=== PATIENT | female | born 1980 | race Caucasian/White ===

== ENCOUNTER → 2020-12-22 11:02 | Outpatient (CLI) | payer OTHER, MEDICAID, SELFPAY ==
--- NOTE | 2020-12-22 11:04 | DI.US.S_ITS ---
PROCEDURE: US OB <= 14 WEEKS FETUS INDICATIONS: DATING OUTSIDE/PRIOR DATING DATA: Last menstrual period (LMP): October 25, 2020. LMP-based estimated date of delivery (LAST): August 01, 2021. First dating scan (date and location): December 22, 2020. Estimated date of delivery (LAST) from first dating scan: July 30, 2021. TECHNIQUE: Real-time scanning was performed of the fetus and maternal pelvic organs, with image documentation. Endovaginal scanning was also performed to better visualize the fetus and maternal ovaries. COMPARISON: None. FINDINGS: Embryo: The mean crown-rump length measures 1.9 cm, compatible with 8 week, 4 day gestation. Heart rate: 163 beats per minute. Prominent bilateral adnexal veins are noted. Measurement variability in dating: +/- 4 weeks by LMP, +/- 7 days by mean sac diameter (use before 6 weeks gestation if crown-rump length not able to be measured), +/- 5 days by crown-rump length (up to 8 weeks 6 days gestation), +/- 7 days by crown-rump length (up to 13 weeks 6 days gestation). Maternal organs: Ovaries demonstrate no significant abnormality . IMPRESSION: Live single intrauterine gestation as detailed above. Dictated by: Barney Alvares M.D. on 12/22/2020 at 12:30 Approved by: Barney Alvares M.D. on 12/22/2020 at 12:35
[2020-12-22 12:14] LABS: Add Manual Diff / Slide Review NO; Basophils Absolute Auto 0 /uL (0-100); Basophils Percent Auto 0.6 % (0-2); Eosinophils Absolute Auto 100 /uL (0-450); Eosinophils Percent Auto 1.4 % (2-4); Hematocrit 36.6 % (36-46); Hemoglobin 12.6 g/dL (12.0-16.0); Lymphocytes Absolute Auto 1500 /uL (1100-4500); Lymphocytes Percent Auto 24.7 % (25-40); Mean Corpuscular HGB Conc 34.5 % (30-36); Mean Corpuscular Hemoglobin 31.1 PG (26-34); Mean Corpuscular Volume 90.3 fL (80-100); Monocytes Absolute Auto 500 /uL (0-900); Monocytes Percent Auto 7.5 % (3-14); Neutrophils Absolute Auto 3900 /uL (1500-7000); Neutrophils Percent Auto 65.8 % (50-75); Platelet Count 250 X10^3/uL (150-400); Red Blood Cell Count 4.06 X10^6/uL (4.0-5.2); Red Cell Distribution Width 13.2 % (11.6-14.8)
[2020-12-22 13:39] LABS: Appearance Urine UA CLEAR; Bilirubin Urine UA NEGATIVE (NEGATIVE); Color Urine UA YELLOW; Glucose Urine UA NEGATIVE (Negative); Ketones Urine UA NEGATIVE (NEGATIVE); Leukocyte Esterase Urine UA NEGATIVE (NEGATIVE); Nitrite Urine UA NEGATIVE (Negative); Occult Blood Urine UA NEGATIVE (Negative); Protein Urine UA NEGATIVE (Negative); Specific Gravity Urine UA <=1.005 (1.000-1.035); Urobilinogen Urine UA 0.2 E.U./dL (0.2)
[2020-12-22 15:23] LABS: Hepatitis B Surface Antigen NEGATIVE s/c (NEGATIVE)
[2020-12-22 15:41] LABS: HIV 1 & 2 Ab/Ag 4th Gen Combo NEGATIVE (NEGATIVE); Hep C Virus Ab w/Reflex Quant NEGATIVE s/c (NEGATIVE)
[2020-12-23 05:41] LABS: RPR Screen Non Reactive (Non Reactive)
[2020-12-23 06:05] LABS: Varicella IgG Antibody 824 index (Immune >165)
[2021-01-03 13:42] LABS: Rubella Antibody IgG 53.9 IU/mL (>15)
== END ==
PROVIDERS: Referring Provider Obstetrics & Gynecology; Visit Provider Obstetrics & Gynecology
DX: Z34.81 Encounter for supervision of other normal pregnancy, first trimester (principal); Z36.87 Encounter for antenatal screening for uncertain dates; Z3A.08 8 weeks gestation of pregnancy
CPT/HCPCS: 36415; 76801; 76817; 80055; 81003; 86787; 86803; 86850; 86900; 86901; 87086; 87389

== ENCOUNTER → 2021-03-10 11:48 | Outpatient (CLI) | payer OTHER, MEDICAID, SELFPAY ==
[2021-03-10 14:15] LABS: GTT (PREG) 1 Hour PP 50gm Dose 138 mg/dL (76-139)
[2021-03-12 22:39] LABS: AFP, Serum 74.5 ng/mL (.); Calc Gestational Age Ultrasound (.); Estriol, Free 2.56 ng/mL (.); Inhibin A, Dimeric 85.54 pg/mL (.); Inhibin A, MoM 0.63 (.); Maternal Ethnicity Caucasian (.); Maternal Weight 199 lbs (.); Number of Fetuses No (.); OSBR Risk 1 IN 965 (.); Results Report (.); Test Results *Screen Negative* (.); hCG, Serum 13920 mIU/mL (.)
== END ==
PROVIDERS: Obstetrics & Gynecology; Referring Provider Obstetrics & Gynecology; Visit Provider Obstetrics & Gynecology
DX: Z3A.17 17 weeks gestation of pregnancy (principal); O09.299 Supervision of pregnancy with other poor reproductive or obstetric history, unspecified trimester; Z86.32 Personal history of gestational diabetes
CPT/HCPCS: 36415; 82105; 82677; 82950; 84702; 86336

== ENCOUNTER → 2021-03-16 14:58 | Outpatient (CLI) | payer OTHER, MEDICAID, SELFPAY ==
--- NOTE | 2021-03-16 14:58 | DI.US.S_ITS ---
PROCEDURE: US OB >= 14 WEEKS FETUS INDICATIONS: ANATOMY OUTSIDE/PRIOR DATING DATA: Last menstrual period (LMP): 10/25/2020 LMP-based estimated date of delivery (LAST): 08/01/2021. First dating scan (date and location): 12/22/2020. Estimated date of delivery (LAST) from first dating scan: 07/30/2021. The calculations are made using the ultrasound LAST of 07/30/2021. TECHNIQUE: Real-time scanning was performed of the fetus, with image documentation and biometric measurements. COMPARISON: None. FINDINGS: General: A single living intrauterine gestation is present. Presentation: Variable. Placenta: Placental position is anterior , without previa. Amniotic fluid index: 11.4 cm, normal range is 5-24 cm. heart rate: 143 beats per minute. Maternal cervical canal: 5.1 cm long. Normal lower limit is 2.5 cm. biometrics: Biparietal diameter: 21 weeks 3 days Head circumference: 21 weeks Abdominal circumference: 22 weeks 1 day Femur length: 21 weeks 0 days Clinically estimated gestational age: 20 weeks 4 days Composite gestational age from present scan: 21 weeks 3 days Estimated weight and percentile: 432 g; 91st percentile. Anatomic survey: Neuro: Ventricles are non-dilated at less than 10 mm. Cisterna magna is normal at 3-11 mm. Cerebellum is normal in size and morphology. Nuchal skin fold: Normal at less than 6 mm between 14-21 weeks gestational age. Face: Nose and lips, facial profile are normal. Spine: No evidence for spina bifida. Heart: 4-chambered heart is present, with normal ventricular outflow tracts. Diaphragm: Diaphragm is intact. Stomach: Left-sided stomach is present. Kidneys: No hydronephrosis. Normal is less than 5 mm in 2nd trimester, less than 7 mm in 3rd trimester. Cord: 3-vessel cord has orthotopic insertion. Bladder: Normal in size. Extremities: All 4 extremities identified. IMPRESSION: 1. Single living IUP redemonstrated and interval growth is upper limits of normal. 2. Normal anatomic survey. We strive to produce accurate, complete, and clear reports of imaging services. To assist us in improving patient care, this report was composed using standard report templates and voice recognition software. Therefore, it may contain abnormal punctuation, insertions and/or omissions. Occasional wrong-word or sound-alike substitutions may occur. Though we review the report and make efforts to correct it, we do recommend that the report be read carefully in proper context to recognize any text inaccuracies. Dictated by: Henry HARRISON Interpreted: Ramírez Webster MD on 03/20/2021 at 14:17 Approved by: Ramírez Webster M.D. on 03/20/2021 at 16:45
== END ==
PROVIDERS: Referring Provider Obstetrics & Gynecology; Visit Provider Obstetrics & Gynecology
DX: Z34.82 Encounter for supervision of other normal pregnancy, second trimester (principal); Z3A.21 21 weeks gestation of pregnancy
CPT/HCPCS: 76811

== ENCOUNTER → 2021-03-30 07:44 | Outpatient (CLI) | payer OTHER, MEDICAID, SELFPAY ==
[2021-03-30 09:09] LABS: Glucose Fasting Gestational 83 mg/dL (76-95)
[2021-03-30 09:29] LABS: Glucose 1 Hour Gest 171 mg/dL (76-180)
[2021-03-30 10:50] LABS: Glucose 2 Hour Gest 114 mg/dL (76-155)
[2021-03-30 11:13] LABS: Glucose Tol Interp,Gestational INTERPRETATION
[2021-03-30 12:32] LABS: Glucose 3 Hour Gest 82 mg/dL (76-140)
== END ==
PROVIDERS: Referring Provider Obstetrics & Gynecology; Visit Provider Obstetrics & Gynecology
DX: O09.299 Supervision of pregnancy with other poor reproductive or obstetric history, unspecified trimester (principal); Z3A.12 12 weeks gestation of pregnancy; Z86.32 Personal history of gestational diabetes
CPT/HCPCS: 36415; 82951; 82952

== ENCOUNTER → 2021-05-02 10:11 | Outpatient (CLI) | payer OTHER, MEDICAID, SELFPAY | PROVIDERS: Referring Provider Obstetrics & Gynecology; Visit Provider Obstetrics & Gynecology | DX: Z3A.26 26 weeks gestation of pregnancy (principal); O26.899 Other specified pregnancy related conditions, unspecified trimester; Z67.91 Unspecified blood type, Rh negative; O09.299 Supervision of pregnancy with other poor reproductive or obstetric history, unspecified trimester; Z86.32 Personal history of gestational diabetes | CPT/HCPCS: 36415; 86850 ==

== ENCOUNTER → 2021-05-25 14:00 | Outpatient (CLI) | payer OTHER, MEDICAID, SELFPAY ==
[2021-05-25 17:55] LABS: GTT (PREG) 1 Hour PP 50gm Dose 129 mg/dL (76-139)
== END ==
PROVIDERS: Referring Provider Obstetrics & Gynecology; Visit Provider Obstetrics & Gynecology
DX: O26.899 Other specified pregnancy related conditions, unspecified trimester (principal); Z3A.26 26 weeks gestation of pregnancy; Z67.91 Unspecified blood type, Rh negative; O09.299 Supervision of pregnancy with other poor reproductive or obstetric history, unspecified trimester; Z86.32 Personal history of gestational diabetes
CPT/HCPCS: 36415; 82950

== ENCOUNTER 2021-06-24 12:25 | Outpatient (CLI) | payer OTHER, MEDICAID, SELFPAY | END 2021-06-24 13:00 | disposition home or self-care (01) | LOC: OB 06-25 07:35 | PROVIDERS: Referring Provider Obstetrics & Gynecology; Visit Provider Obstetrics & Gynecology | DX: O09.523 Supervision of elderly multigravida, third trimester (principal); Z3A.34 34 weeks gestation of pregnancy | CPT/HCPCS: 59025; G0378; G0379 ==

== ENCOUNTER → 2021-07-06 12:44 | Outpatient (CLI) | payer OTHER, MEDICAID, SELFPAY ==
[2021-07-07 09:19] LABS: Bile Acids 17.3 umol/L (0.0-10.0)
== END ==
PROVIDERS: Referring Provider Obstetrics & Gynecology; Visit Provider Obstetrics & Gynecology
DX: Z34.93 Encounter for supervision of normal pregnancy, unspecified, third trimester (principal); L29.9 Pruritus, unspecified; Z87.19 Personal history of other diseases of the digestive system; Z87.59 Personal history of other complications of pregnancy, childbirth and the puerperium
CPT/HCPCS: 36415; 82239

== ENCOUNTER → 2021-07-09 10:25 | Outpatient (CLI) | payer OTHER, MEDICAID, SELFPAY ==
[2021-07-10 07:50] LABS: Strep Grp B PCR NEG for Grp B Strep
== END ==
PROVIDERS: Visit Provider Obstetrics & Gynecology
DX: Z34.83 Encounter for supervision of other normal pregnancy, third trimester (principal); Z3A.36 36 weeks gestation of pregnancy
CPT/HCPCS: 87653

== ENCOUNTER → 2021-07-10 10:48 | Outpatient (CLI) | payer OTHER, MEDICAID, SELFPAY ==
[2021-07-11 11:57] LABS: Bile Acids 7.1 umol/L (0.0-10.0)
== END ==
PROVIDERS: Referring Provider Obstetrics & Gynecology; Visit Provider Obstetrics & Gynecology
DX: O26.613 Liver and biliary tract disorders in pregnancy, third trimester (principal); K83.1 Obstruction of bile duct
CPT/HCPCS: 36415; 82239

== ENCOUNTER 2021-07-10 10:53 | Outpatient (CLI) | payer OTHER, MEDICAID, SELFPAY ==
--- NOTE | 2021-07-10 | DI.US.S_ITS ---
PROCEDURE: US OB BIOPHYSICAL PROFILE INDICATIONS: Intrahepatic cholestasis of OUTSIDE/PRIOR DATING DATA: Last menstrual period (LMP): 11/14/20. LMP-based estimated date of delivery (LAST): 08/01/21. First dating scan (date and location): 12/22/20. Estimated date of delivery (LAST) from first dating scan: 07/30/21. TECHNIQUE: Real-time scanning was performed of the fetus, with image documentation and biometric measurements. Biophysical profile was also obtained. COMPARISON: [facility], OB >= 14 WEEKS FETUS, 03/16/2021, 15:20. [facility], OB <= 14 WEEKS FETUS, 12/22/2020, 11:19. FINDINGS: General: A single living intrauterine gestation is present. Presentation: Vertex. Placenta: Placental position is anterior, without previa. Amniotic fluid index: 15 cm, normal range is 5-24 cm. Single deepest vertical pocket is 5.5 cm. heart rate: 144 beats per minute. Maternal cervical canal: not visualized cm long. biometrics: Composite gestational age from original scan: 37 weeks 1 day Biophysical profile: Tone: 2 points. Movement: 2 points. Respiration: 2 points. Largest pocket of fluid: 2 points. IMPRESSION: Single live intrauterine with ultrasound gestational age of 37 weeks 1 day. BPP 8/8. LICHA 15 cm. We strive to produce accurate, complete, and clear reports of imaging services. To assist us in improving patient care, this report was composed using standard report templates and voice recognition software. Therefore, it may contain abnormal punctuation, insertions and/or omissions. Occasional wrong-word or sound-alike substitutions may occur. Though we review the report and make efforts to correct it, we do recommend that the report be read carefully in proper context to recognize any text inaccuracies. Dictated by: Ignacia Simmons M.D. on 07/10/2021 at 13:38 Approved by: Ignacia Simmons M.D. on 07/10/2021 at 13:42
[2021-07-10 11:38] LABS: Alanine Aminotransferase 26 IU/L (<35); Albumin 3.6 g/dL (3.5-5.0); Albumin Globulin Ratio 1.1 (1.0-2.8); Alkaline Phosphatase 172 U/L (38-126); Aspartate Aminotransferase 33 IU/L (14-36); Bilirubin Total 0.3 mg/dL (0.2-1.3); Bilirubin Unconjugated 0.5 mg/dL (0.0-1.1); Globulin 3.3 g/dL (1.7-4.1); HEMOLYSIS < 15 (0-50); Total Protein 6.9 g/dL (6.3-8.2)
--- NOTE | 2021-07-10 12:37 | PM.OBTRLD ---
Visit Information Visit Information Date of evaluation: 07/10/21 Primary OB Provider: Darin Reeves Reason for Evaluation: Yes non-stress test Comments/Additional reasons for admission: Intrahepatic cholestasis of , AMA [facility] Medical History (Updated 07/09/21 @ 13:03 by Darin Reeves MD) Abnormal Pap smear of cervix (~2003) Acne (~1994) delivery indicated due to breech presentation Chicken pox (~1986) Cholestasis during in third trimester (~2018) Gestational diabetes mellitus (GDM) History of cholestasis during Surgical History (Updated 01/21/21 @ 22:42 by Carine Weathers) Anesthesia History of delivery, antepartum (~06/01/18) History of colposcopy (~2003) [place] teeth extracted (~07/1997) Family History (Updated 01/21/21 @ 22:43 by Carine Weathers) Mother Smoker Lung cancer Father Hypertension Grandmother Smoker Myocardial infarction Grandfather History of heart disease Grandmother No problems noted. Grandfather No problems noted. 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 ) substance use type: does not use during the past year weight has: remained stable well-balanced diet: daily or most days daily servings fruits/ve or more times/day caffeine: Yes (1 cup coffee daily.) Type(s) of exercise: walking (& Hiking) and normal ROM and activity (Busy mom to 2 1/2 yr old.) frequency: 3-4 times per week Objective Labs Labs: Laboratory Results - last 24 hr 07/10/21 11:21 Total Bilirubin 0.3 Conjugated Bilirubin 0.0 Unconjugated Bilirubin 0.5 AST 33 ALT 26 Alkaline Phosphatase 172 H Total Protein 6.9 Albumin 3.6 Globulin 3.3 Albumin/Globulin Ratio 1.1 Evaluation Evaluation Baseline heart rate: 130 Variability: Moderate (11-25) monitor accelerations: Present Monitor Decelerations: Absent Category of Tracing: Reactive Diagnosis, Plan/Disposition Final Diagnosis (1) Cholestasis during in third trimester: Status: Acute (2) Advanced maternal age (AMA), 40 years or greater: Status: Acute (3) : Status: Acute Plan/Disposition Plan: Continue weekly assessment and patient is scheduled for repeat section on 07/23/2021. LFTs today are normal and repeat bile acids pending. OB Disposition: home
== END 2021-07-10 12:40 | disposition home or self-care (01) ==
LOC: LABOR 12:03 → OB 07-13 16:01
PROVIDERS: Referring Provider Obstetrics & Gynecology; Visit Provider Obstetrics & Gynecology
DX: O26.613 Liver and biliary tract disorders in pregnancy, third trimester (principal); K83.1 Obstruction of bile duct; O09.523 Supervision of elderly multigravida, third trimester; Z3A.36 36 weeks gestation of pregnancy
CPT/HCPCS: 36415; 59025; 76819; 80076; 82239; G0378; G0379

== ENCOUNTER 2021-07-16 11:20 | Outpatient (CLI) | payer OTHER, MEDICAID, SELFPAY ==
--- NOTE | 2021-07-17 13:11 | PM.OBTRLD ---
Visit Information Visit Information Date of evaluation: 07/16/21 Primary OB Provider: Darin Reeves Reason for Evaluation: Yes non-stress test Comments/Additional reasons for admission: Intrahepatic cholestasis of . Most recent bile acid levels have normalized with initiation of Ursodiol t.i.d. [facility] Medical History (Updated 07/16/21 @ 11:18 by Darin Reeves MD) Abnormal Pap smear of cervix (~2003) Acne (~1994) delivery indicated due to breech presentation Chicken pox (~1986) Cholestasis during in third trimester (~2018) Gestational diabetes mellitus (GDM) History of cholestasis during Surgical History (Updated 01/21/21 @ 22:42 by Carine Weathers) Anesthesia History of delivery, antepartum (~06/01/18) History of colposcopy (~2003) [place] teeth extracted (~07/1997) Family History (Updated 01/21/21 @ 22:43 by Carine Weathers) Mother Smoker Lung cancer Father Hypertension Grandmother Smoker Myocardial infarction Grandfather History of heart disease Grandmother No problems noted. Grandfather No problems noted. 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 ) substance use type: does not use during the past year weight has: remained stable well-balanced diet: daily or most days daily servings fruits/ve or more times/day caffeine: Yes (1 cup coffee daily.) Type(s) of exercise: walking (& Hiking) and normal ROM and activity (Busy mom to 2 1/2 yr old.) frequency: 3-4 times per week Evaluation Evaluation Baseline heart rate: 135 Variability: Moderate (11-25) monitor accelerations: Present Monitor Decelerations: Absent Category of Tracing: Reactive Status: Category l Diagnosis, Plan/Disposition Final Diagnosis (1) Cholestasis during in third trimester: Status: Acute (2) Size of fetus inconsistent with dates in third trimester: Status: Acute (3) Advanced maternal age (AMA), 40 years or greater: Status: Acute (4) Rh negative state in antepartum period: Status: Acute Plan/Disposition Plan: Patient scheduled for repeat section 07/23/2021 at 38+ weeks due to ICP, well controlled w/ ursodiol.
== END 2021-07-16 14:47 | disposition home or self-care (01) ==
LOC: LABOR 13:59 → OB 07-22 13:57
PROVIDERS: Referring Provider Family Medicine; Visit Provider Family Medicine
DX: O26.613 Liver and biliary tract disorders in pregnancy, third trimester (principal); K83.1 Obstruction of bile duct; O09.523 Supervision of elderly multigravida, third trimester; O26.843 Uterine size-date discrepancy, third trimester; Z3A.37 37 weeks gestation of pregnancy; Z67.91 Unspecified blood type, Rh negative
CPT/HCPCS: 59025; G0378; G0379

== ENCOUNTER 2021-07-23 05:58 | Inpatient (IN) | payer OTHER, MEDICAID, SELFPAY ==
--- NOTE | 2021-07-22 18:10 | PM.OBHP.1 ---
OB HPI Date/Time Date of admission: 07/23/21 Date Patient Seen: 07/23/21 History of Present Condition Chief complaint: REPEAT : 3 Para: 1 Estimated Date of Delivery: 08/01/21 Estimated Gestational Age (weeks): 38+5 Narrative: Yue Cook is a 40 year old admitted for repeat section now at 38+ 5 weeks gestational age. course has been complicated by the development of late 3rd trimester idiopathic cholestasis of which has been treated with Ursodiol 250 mg p.o. t.i.d. with normalization of bile acid levels. Patient is BT A negative, GBS is negative. Indications Operative indications ( section): previous uterine surgery History of Present care: good care Dating criteria: LMP confirmed by 1st trimester US Ultrasounds: normal 1st trimester US and normal mid trimester US Obstetrical complications: other (Intrahepatic cholestasis of ) Medical complications: none Preadmission Labs Blood type: A (-) negative -: Antibody screen: negative, GBS status: negative, HBsAG: negative, HIV: negative and RPR/VDLR: negative -: Rubella: immune HCT: 32.2 HCAB: negative PAP: Normal Cell-free DNA: Negative 1 hr GTT: 129 Prior (ies) History: Prior section Evaluation Evaluation Baseline heart rate: 135 Variability: Average (6-10) monitor accelerations: Present Monitor Decelerations: Absent Category of Tracing: Reactive Status: Category l [facility] Medical History (Updated 07/16/21 @ 11:18 by Darin Reeves MD) Abnormal Pap smear of cervix (~2003) Acne (~1994) delivery indicated due to breech presentation Chicken pox (~1986) Cholestasis during in third trimester (~2018) Gestational diabetes mellitus (GDM) History of cholestasis during Surgical History (Updated 01/21/21 @ 22:42 by Carine Weathers) Anesthesia History of delivery, antepartum (~06/01/18) History of colposcopy (~2003) [place] teeth extracted (~07/1997) Family History (Updated 01/21/21 @ 22:43 by Carine Weathers) Mother Smoker Lung cancer Father Hypertension Grandmother Smoker Myocardial infarction Grandfather History of heart disease Grandmother No problems noted. Grandfather No problems noted. 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 ) substance use type: does not use during the past year weight has: remained stable well-balanced diet: daily or most days daily servings fruits/ve or more times/day caffeine: Yes (1 cup coffee daily.) Type(s) of exercise: walking (& Hiking) and normal ROM and activity (Busy mom to 2 1/2 yr old.) frequency: 3-4 times per week Meds Home Medications and Allergies Home Medications Medication Instructions Recorded Confirmed Type prenat.vits,trupti,xqa-[id number] 1 tab PO DAILY 01/02/21 05/27/21 History fluconazole 150 mg tablet 150 mg PO ONCE #1 tab 01/19/21 05/27/21 Rx (Diflucan) ursodiol 250 mg tablet 250 mg PO TID #90 tab 07/09/21 07/09/21 Rx Allergies Allergy/AdvReac Type Severity Reaction Status Date / Time Sulfa (Sulfonamide Allergy Childhood Unverified 05/27/21 12:11 Antibiotics) reaction but unknown details. red wine extract AdvReac Mild Blotchy Verified 05/27/21 12:11 hives when she drinks red wine. Review of Systems Review of Systems Narrative: Problem-specific ROS positives included in HPI OB Exam [facility] Head: normal to inspection, normocephalic and atraumatic Eyes General: appearance normal, both eyes and all related structures Resp Effort & Inspection: normal respiratory effort and able to speak in complete sentences Auscultation: clear to auscultation bilaterally Cardio Rate: regular rate Rhythm: regular rhythm Heart Sounds: S1 normal, S2 normal and no murmurs Extremities Lower extremity: Yes normal to inspection GI Inspection: normal to inspection and incision (Well-healed Pfannenstiel) Palpation: Yes soft and Yes no hepatosplenomegaly Uterus Location (Fundal Height): 39 Presentation: vertex Estimated Weight (lbs): 8 Objective Labs Result Diagrams: 07/23/21 06:40 Assessment and Plan Assessment and Plan Assessment and Plan narrative: ASSESSMENT 1. Intrauterine , Graff, vertex, 38+ 5 weeks gestational age 2. Prior section 3. Rh negative status 4. Intrahepatic cholestasis of PLAN 1. Admit for repeat section 2. Patient counseled regarding alternatives risks, benefits, and potential complications associated with repeat delivery. With full understanding of the above, written consent was executed, signed, and witnessed this date. 3. See admission orders Time Spent with Patient Total time spent with greater than 50% in coordination of care (as documented) at patient's floor/unit and/or counseling patient:: 15-24 minutes
[2021-07-23 06:52] LABS: Add Manual Diff / Slide Review NO; Basophils Absolute Auto 100 /uL (0-100); Basophils Percent Auto 0.8 % (0-2); Eosinophils Absolute Auto 100 /uL (0-450); Hematocrit 32.2 % (36-46); Hemoglobin 11.4 g/dL (12.0-16.0); Lymphocytes Absolute Auto 2400 /uL (1100-4500); Lymphocytes Percent Auto 28.8 % (25-40); Mean Corpuscular HGB Conc 35.5 % (30-36); Mean Corpuscular Hemoglobin 32.2 PG (26-34); Mean Corpuscular Volume 90.7 fL (80-100); Monocytes Absolute Auto 700 /uL (0-900); Monocytes Percent Auto 8.3 % (3-14); Neutrophils Absolute Auto 5000 /uL (1500-7000); Neutrophils Percent Auto 61.1 % (50-75); Platelet Count 197 X10^3/uL (150-400); Red Blood Cell Count 3.55 X10^6/uL (4.0-5.2); Red Cell Distribution Width 14.3 % (11.6-14.8); White Blood Cell Count 8.2 X10^3/uL (4.5-11.0)
[2021-07-23 07:07] LABS: COVID19 -Nasal RAPID Negative (Negative)
--- NOTE | 2021-07-23 07:22 | PM.PREOP ---
Pre-operative Note COVID-19 COVID-19 status: Negative Result date/Date tested (Pos, Neg/Pending): 07/23/21 Criteria for continued procedure: Non-surgical alternatives not available or appropriate per current SOC Interval Note History & Physical reviewed/Exam performed by Physician: Yes Changes to H&P: No
[2021-07-23] MEDS: CEFAZOLIN 2 GM/20 ML SYRINGE IV (08:20)
[2021-07-23] MEDS: LACTATED RINGERS 1,000 ML 100 ML IV (08:50)
--- NOTE | 2021-07-23 08:58 | SUR.OPER ---
Supine on Padded OR bed, head on pillow, safety belt at thigh, arms secured on padded arm boards at <90 degrees abduction. Bump under right buttock. Legs uncrossed with pillow under knees, gel pad to heels, tape over blanket to lower legs.
--- NOTE | 2021-07-23 09:16 | SUR.OPER ---
Viable baby boy born at 08:41 AM. Respiratory Therapy and L&D Nurse in room.
[2021-07-23 09:44] VITALS: BP 134/88; PULSE 77; RESP 16; TEMP 36.2; O2SAT 98
[2021-07-23 09:50] VITALS: BP 122/82; PULSE 70; RESP 16; O2SAT 99
--- NOTE | 2021-07-23 09:53 | PM.OBCS.1 ---
Operative Date/Time/Diagnoses Date of procedure: 07/23/21 Time of procedure: 08:15 Pre-op diagnosis: Intrauterine gestation, 38+ 5 weeks gestational age Prior section Intrahepatic cholestasis of Maternal Rh-negative status Post-op diagnosis: same (Delivered) Procedure & Clinicians Procedure: Repeat section (low transverse cervical) Same procedure as scheduled: Yes Indications: Yue Cook is a 40 year old admitted for repeat section now at 38+ 5 weeks gestational age.? course has been complicated by the development of late 3rd trimester idiopathic cholestasis of which has been treated with Ursodiol 250 mg p.o. t.i.d. with normalization of bile acid levels.? Patient is BT A negative, GBS is negative. Surgeon: Darin Reeves Hearing Instrument Specialist: Juana Jeff Reason for Hearing Instrument Specialist: Retraction, and for the safe, timely, and effective performance of this complex procedure. Anesthesia Type: Spinal Operative Notes Findings: Viable male infant deliverd from the vertex presentation with Apgars / and BW of gms (lb. oz.). Normal gravid anatomy. Closure Type: primary Specimen(s): cord blood Intraoperative meds administered: Acetaminophen, Ketorolac and Pitocin Applied: Catheter Estimated Blood Loss (mL): 600 Blood products transfused: none Procedure in detail: With her informed written consent, the patient was taken to the operating room and placed in the supine position for a repeat section procedure, for the indication(s) above. The abdomen was prepped and draped in the usual manner for section and a pre-surgical timeout was taken per [facility] OR protocol. Once effective anesthesia was confirmed, a 15 cm transverse Pfannenstiel incision was made in the skin and taken down through the subcutaneous tissues to the deep fascia. The deep fascia was incised transversely, the rectus abdominal eyes bluntly and sharply, and the peritoneal cavity entered without difficulty. The lower uterine segment was visualized and the position/presentation palpated. A transverse incision at or above the vesicouterine reflection was made with Metzenbaum scissors and transverse hysterotomy performed near the midline. Amniotomy revealed clear fluid. The incision was extended bilaterally with digital traction and the was delivered with assistance of a Mamayaup vacuum extractor from the vertex presentation. The infant was vigorous and cord clamping delayed for 60 seconds. The placenta was delivered intact using gentle cord traction and fundal massage.The uterine cavity was then cleared of any clot/debris first with a sloppy wet lap tape followed by a dry lap tape. Ring forceps were then applied to the angles and the midline of the incised SHANTAL. A primary closure of the uterus was then accomplished with #1 CCGS in a running interlocking stitch followed by a 2nd layer of #1 CCGS in a running interlocking imbricating stitch. Two additional [id number] sutures were required to achieve complete hemostasis. Once pelvic hemostasis was assured, the anterior peritoneum was closed with a running 2-0 Vicryl suture and the fascia closed with #1 Vicryl in a running stitch initiated at both angles and tying separately near the midline. The subcutaneous tissues were reapproximated with 2-0 plain catgut suture using inverted interrupted stitches. The skin edges were then brought together with 4-0 Monocryl in a subcuticular closure and the incision was reinforced with half-inch Steri-Strips. An AquaCel dressing was applied and the patient transferred to PACU for recovery and subsequent transfer to the Center for recuperation. Complications: none Baby 1: Gender: Male Presentation: vertex Placental Delivery Description: Spontaneous and Expressed Cord Vessel Description: 3 Vessels score (1 min): 7 score (5 min): 8 score (10 min): 9 weight: 7 lb 11.988 oz Post-operative Condition: stable Disposition: PACU Aftercare: routine postop
[2021-07-23 09:55] VITALS: BP 120/70; PULSE 72; RESP 16; O2SAT 98
[2021-07-23 10:00] VITALS: BP 106/67; PULSE 72; RESP 16; TEMP 36.2; O2SAT 98
[2021-07-23] MEDS: OXYTOCIN PREMIX 30 UNIT/500 ML PLAST..BAG 200 UNIT IV (10:31)
[2021-07-23] MEDS: IRON SUCROSE 200 MG in SODIUM CHLORIDE 0.9% 100 ML 220 MG IV (11:01)
[2021-07-23] MEDS: SODIUM CHLORIDE 0.9% 100 ML 200 ML (12:55)
[2021-07-23] MEDS: ONDANSETRON 8 MG in SODIUM CHLORIDE 0.9% 100 ML 208 MG IV (12:58)
[2021-07-23 14:10] VITALS: BP 113/75
[2021-07-23] MEDS: KETOROLAC 30 MG/ML VIAL IV ×2 (16:45→23:18)
[2021-07-23] MEDS: ACETAMINOPHEN 325 MG TABLET 975 MG PO (16:46)
[2021-07-23] MEDS: ursodioL 300 MG CAPSULE PO (17:50)
[2021-07-23] MEDS: DOCUSATE 100 MG CAPSULE 200 MG PO (21:47)
[2021-07-24] MEDS: ACETAMINOPHEN 325 MG TABLET 975 MG PO ×2 (00:55→08:57)
[2021-07-24] MEDS: KETOROLAC 30 MG/ML VIAL IV (04:54)
[2021-07-24] MEDS: CALCIUM CARBONATE 500 MG TAB PO (05:43)
[2021-07-24 06:36] LABS: Add Manual Diff / Slide Review NO; Basophils Absolute Auto 0 /uL (0-100); Basophils Percent Auto 0.4 % (0-2); Eosinophils Absolute Auto 0 /uL (0-450); Eosinophils Percent Auto 0.3 % (2-4); Hematocrit 26.8 % (36-46); Hemoglobin 9.6 g/dL (12.0-16.0); Lymphocytes Absolute Auto 2400 /uL (1100-4500); Lymphocytes Percent Auto 22.8 % (25-40); Mean Corpuscular HGB Conc 35.7 % (30-36); Mean Corpuscular Hemoglobin 32.4 PG (26-34); Mean Corpuscular Volume 90.8 fL (80-100); Monocytes Absolute Auto 800 /uL (0-900); Monocytes Percent Auto 7.4 % (3-14); Neutrophils Absolute Auto 7200 /uL (1500-7000); Neutrophils Percent Auto 69.1 % (50-75); Platelet Count 183 X10^3/uL (150-400); Red Blood Cell Count 2.96 X10^6/uL (4.0-5.2); Red Cell Distribution Width 14.3 % (11.6-14.8); White Blood Cell Count 10.5 X10^3/uL (4.5-11.0)
[2021-07-24] MEDS: ursodioL 300 MG CAPSULE PO (09:26)
--- NOTE | 2021-07-24 11:50 | P.DS_ITS ---
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 She underwent an uneventful repeat section by low transverse cervical incision on the morning of 07/23/2021 and the details of that procedure are well summarized on the operative note of that date. Following surgery the patient has done extremely well with prompt return of bowel and bladder function, she is ambulating independently, tolerating regular diet, and her pain is well relieved with oral pain medications. She will be discharged at this time to home in an afebrile normotensive condition after counseling regarding precautionary symptoms, limitations activity, medications, and plans for follow-up which will be in 1 week for an incision check. Medication at the time of discharge will include resumption of all prior medications and oxycodone 5 mg p.o. q.6 hours as needed pain 12., ibuprofen 600 mg p.o. q.6 hours as needed pain. In addition patient will initiate Micronor OCs for contraception while . Peripartum Data Infant Delivery Method: Section Laceration Description: None Episiotomy description: None complications: none Bates 1: Gender: Male Disposition of : home Status at Discharge Cognitive/behavioral status at discharge: oriented Functional status at discharge: independent ambulation Overall status at discharge: patient is progressing back to baseline Time Spent with Patient Time attestation: Total time spent providing and/or coordinating discharge services: Time spent: Less than 30 minutes Objective Labs Result Diagrams: 07/24/21 06:14 Labs: Laboratory Results - last 24 hr 07/24/21 06:14 WBC 10.5 RBC 2.96 L Hgb 9.6 L Hct 26.8 L MCV 90.8 MCH 32.4 MCHC 35.7 RDW 14.3 Plt Count 183 Neut % (Auto) 69.1 Lymph % (Auto) 22.8 L Hendricks % (Auto) 7.4 Eos % (Auto) 0.3 L Baso % (Auto) 0.4 Neut # (Auto) 7200 H Lymph # (Auto) 2400 Hendricks # (Auto) 800 Eos # (Auto) 0 Baso # (Auto) 0 Exam Vital Signs (past 8 hours): Oxygen Delivery Method Room Air Const General: cooperative and comfortable Nutritional Appearance: average body habitus Orientation: alert and oriented x3 HENMT Head: normal to inspection, atraumatic and abrasion Ears: hearing grossly normal bilaterally Face and sinus: face symmetric Eyes General: appearance normal, both eyes and all related structures Conjunctivae: conjunctivae normal Sclera: sclerae normal EOM: EOM intact bilaterally Neck Neck: normal visual inspection Resp Effort & Inspection: normal respiratory effort and able to speak in complete sentences Auscultation: clear to auscultation bilaterally Cardio Rate: regular rate Rhythm: regular rhythm Heart Sounds: S1 normal, S2 normal and no murmurs GI Inspection: normal to inspection and incision (Surgical dressing clean and dry) Palpation: soft, no hepatosplenomegaly, mass (Firm, mildly tender fundus, U -5) and tender (Mild, diffuse postsurgical tenderness) External Female Exam: other (No significant bleeding noted) Extrem General: no calf tenderness Psych Appearance: grossly normal Mental Status: mental status grossly normal Speech and Movement: speech and movement normal Mood: congruent mood Affect: normal affect Attitude: cooperative Thought Process: normal Thought Content: normal Judgment: judgment good Discharge Plan Discharge Plan Patient Disposition: Home Provider Discharge Comment: Please review the written instructions you received when you were discharged from the hospital. Your follow-up appointment will be scheduled for one week following your delivery and I look forward to seeing you then. If in the meanwhile however you have any issues, concerns, or problems, please contact me either by the office phone [phone] or via the patient portal. Discharge orders & Medications Prescriptions: New ibuprofen 600 mg tablet 600 mg PO Q6H PRN (Reason: fever or pain) Qty: 60 2RF oxycodone 5 mg tablet 5 mg PO Q6H PRN (Reason: pain) Qty: 12 0RF Continued prenat.vits,trupti,[id number] Tablet 1 tab PO DAILY Discontinued fluconazole [Diflucan] 150 mg tablet 150 mg PO ONCE Qty: 1 3RF Rx Instructions: as a single dose ursodiol 250 mg tablet 250 mg PO TID Qty: 90 0RF No Action norethindrone (contraceptive) [Ortho Micronor] 0.35 mg tablet 0.35 mg PO DAILY Qty: 84 6RF Follow up/Referrals: Darin Reeves MD [Physician] - 07/31/21 2:30 pm (6 week check up; TuesdaySeptember 02 @ 3:00pm check in 15 minutes prior) Discharge Health Status Multidrug resistant organism: No MDRO Diet/Activity/Treatments Diet: Diet as Tolerated Diet comment: Increase your intake of iron rich foods. Activity: As tolerated Other treatments: Tylenol as needed. Over the counter stool softener once or twice daily for the next 30 days. Skin/Wound/Dressing Care Report to your healthcare provider any signs of infection, such as:: chills, fever, increased pain, unusual drainage and unusual redness Dressing: The surgical dressing will be removed at your 1 week postop visit. Visit Report/Discharge Packet Instructions: Depression, DI for
[2021-07-24] MEDS: IBUPROFEN 600 MG TABLET PO (13:02)
== END 2021-07-24 15:10 | disposition home or self-care (01) | DRG 540 ==
PROVIDERS: Admitting Provider Obstetrics & Gynecology; Referring Provider Obstetrics & Gynecology; Visit Provider Obstetrics & Gynecology
PROC: 10D00Z1 Extraction of Products of Conception, Low, Open Approach (ICD-10-PCS; CPT 59514; principal; 2021-07-23 07:45)
DX: O34.211 Maternal care for low transverse scar from previous cesarean delivery (principal); Z3A.38 38 weeks gestation of pregnancy; Z37.0 Single live birth; O26.62 Liver and biliary tract disorders in childbirth; K83.1 Obstruction of bile duct; O90.81 Anemia of the puerperium; D62 Acute posthemorrhagic anemia; Z20.822 Contact with and (suspected) exposure to COVID-19
CPT/HCPCS: 36415; 59050; 59514; 85025; 86850; 86900; 86901; 87635; C9803; J0690; J1756; J1885; J2274; J2405; J2590; J3010